=== PATIENT | female | born 1940 | race Asian ===

== ENCOUNTER 2017-02-09 16:08 | Inpatient (IN) | payer OTHER, MEDICARE ==
[~2017-02-09] VITALS: Ht 157.5 cm; Wt 67.1 kg
[2017-02-09] MEDS ORDERED: FAMOTIDINE 20 MG/2 ML IVPush ONE (16:30)
[2017-02-09] MEDS ORDERED: ASPIRIN 81 MG TABLET CHEW PO ONE (16:30)
[2017-02-09] MEDS ORDERED: SODIUM CHLORIDE FLUSH 10ML SYR IVF ONE (16:30)
[2017-02-09] MEDS ORDERED: ONDANSETRON 2MG/ML, 2ML IVPush ONE (16:30)
[2017-02-09] MEDS ORDERED: SODIUM CHLORIDE 0.9% 1,000ML IVBOLUS ONE (16:30)
[2017-02-09] MEDS ORDERED: ASPIRIN 81 MG TABLET CHEW ONE (16:52)
[2017-02-09] MEDS ORDERED: ONDANSETRON 2MG/ML, 2ML ONE (16:52)
[2017-02-09] MEDS ORDERED: FAMOTIDINE 20 MG/2 ML ONE (16:52)
[2017-02-09 17:03] LABS: ASPARTATE AMINO TRANSFERASE 16 U/L (15-37); BLOOD UREA NITROGEN 24 mg/dL (7-18)
[2017-02-09 17:08] LABS: IS PT STATUS REG ER OR PRE ER? YES
[2017-02-09 17:28] LABS: DIFF TOTAL CELLS COUNTED 100 CELL DIFF
[2017-02-09] MEDS ORDERED: ATOR40TA78 PO (17:37)
[2017-02-09] MEDS ORDERED: CARV-39 PO (17:37)
[2017-02-09] MEDS ORDERED: GLUC1TAB21 PO (17:37)
[2017-02-09] MEDS ORDERED: HYDR25TA6 PO (17:37)
[2017-02-09] MEDS ORDERED: ASPI-650 PO (17:37)
[2017-02-09] MEDS ORDERED: VERA100C2 PO (17:37)
[2017-02-09] MEDS ORDERED: IRBE300T16 PO (17:37)
[2017-02-09] MEDS ORDERED: LOSA50TA6 PO (17:37)
[2017-02-09] MEDS ORDERED: MELO-184 PO (17:37)
[2017-02-09] MEDS ORDERED: LINA5TAB PO (17:37)
[2017-02-09 17:53] LABS: ANISOCYTOSIS 1+; POLYCHROMASIA 1+
[2017-02-09 17:54] LABS: HYPOCHROMIA 1+; SPHEROCYTES 1+; TARGET CELLS 1+
[2017-02-09 17:55] LABS: VERIFY COUNTS? YES
[2017-02-09] MEDS ORDERED: PANTOPRAZOLE 80 MG in SODIUM CHLORIDE 0.9% 50 ML IV ONE (18:30)
[2017-02-09] MEDS ORDERED: PANTOPRAZOLE 80 MG in SODIUM CHLORIDE 0.9% 100 ML IV SCH (18:45)
[2017-02-09] MEDS ORDERED: INSULIN ASPART 100 UNITS/ML, PEN SQ-INSULIN SCH (19:00)
[2017-02-09] MEDS ORDERED: MORPHINE SULFATE 4 MG/ML, 1ML IVPush PRN (19:00)
[2017-02-09] MEDS ORDERED: BISACODYL 10 MG SUPP PR PRN (19:00)
[2017-02-09] MEDS ORDERED: ACETAMINOPHEN 325 MG TABLET PO PRN (19:00)
[2017-02-09] MEDS ORDERED: ONDANSETRON 2MG/ML, 2ML IVP PRN (19:00)
[2017-02-09 20:00] VITALS: BP 146/61
[2017-02-09 20:43] VITALS: BP 146/61
[2017-02-09] MEDS ORDERED: ATORVASTATIN 40 MG TABLET PO SCH (21:00)
[2017-02-09] MEDS ORDERED: CARVEDILOL 25 MG TABLET PO SCH (21:00)
[2017-02-09] MEDS ORDERED: VERAPAMIL HCL 100 MG HOMEMEDPO SCH ×2 (21:00→22:04)
[2017-02-09] MEDS: INSULIN ASPART 100 UNITS/ML, PEN SQ-INSULIN SCH (22:00)
[2017-02-09] MEDS: SODIUM CHLORIDE 0.9% 1,000 ML IV SCH (22:34)
[2017-02-09 22:49] VITALS: BP 135/67
[2017-02-09 23:09] VITALS: BP 137/66
[2017-02-09 23:10] VITALS: BP 137/66
[2017-02-09 23:25] VITALS: BP 145/61
[2017-02-10] VITALS (11 sets, daily range): BP systolic 129–167; BP diastolic 60–75
[2017-02-10] MEDS: INSULIN ASPART 100 UNITS/ML, PEN SQ-INSULIN SCH ×4 (04:00→21:02)
[2017-02-10] MEDS: PANTOPRAZOLE 80 MG in SODIUM CHLORIDE 0.9% 100 ML IV SCH ×2 (05:28→12:40)
[2017-02-10 06:39] LABS: ASPARTATE AMINO TRANSFERASE 13 U/L (15-37); BLOOD UREA NITROGEN 16 mg/dL (7-18)
[2017-02-10] MEDS ORDERED: FENTANYL PF 100 MCG/2ML ONE (07:54)
[2017-02-10] MEDS ORDERED: MIDAZOLAM 1 MG/ML, 5ML ONE (07:55)
[2017-02-10] MEDS: HYDROCHLOROTHIAZIDE 25 MG TABLET HOMEMEDPO SCH (09:00)
[2017-02-10] MEDS ORDERED: LOSARTAN 50MG TABLET PO SCH (09:00)
[2017-02-10] MEDS: CARVEDILOL 25 MG TABLET HOMEMEDPO SCH ×2 (09:00→21:03)
[2017-02-10] MEDS: TEMPLATE NON-FORMULARY MED. (Linagliptin** (Tradjenta**) 5 MG) HOMEMEDPO SCH (09:00)
[2017-02-10] MEDS: IRBESARTAN 300 MG TABLET HOMEMEDPO SCH (09:00)
[2017-02-10] MEDS: SODIUM CHLORIDE 0.9% 1,000 ML IV SCH ×2 (09:52→18:31)
[2017-02-10] MEDS ORDERED: ATORVASTATIN 40 MG TABLET HOMEMEDPO SCH (21:00)
[2017-02-11] MEDS: PANTOPRAZOLE 80 MG in SODIUM CHLORIDE 0.9% 100 ML IV SCH ×2 (00:15→12:20)
[2017-02-11 00:19] VITALS: BP 124/64
[2017-02-11] MEDS: SODIUM CHLORIDE 0.9% 1,000 ML IV SCH ×2 (03:53→15:00)
[2017-02-11] MEDS: INSULIN ASPART 100 UNITS/ML, PEN SQ-INSULIN SCH ×3 (03:56→16:00)
[2017-02-11 06:50] VITALS: BP 137/56
[2017-02-11] MEDS: HYDROCHLOROTHIAZIDE 25 MG TABLET HOMEMEDPO SCH (09:00)
[2017-02-11] MEDS ORDERED: OMEPRAZOLE 20 MG CAPSULE.DR PO SCH (09:00)
[2017-02-11] MEDS: IRBESARTAN 300 MG TABLET HOMEMEDPO SCH (09:00)
[2017-02-11] MEDS: CARVEDILOL 25 MG TABLET HOMEMEDPO SCH (09:00)
[2017-02-11] MEDS: TEMPLATE NON-FORMULARY MED. (Linagliptin** (Tradjenta**) 5 MG) HOMEMEDPO SCH (09:00)
[2017-02-11 12:32] VITALS: BP 123/56
[2017-02-11] MEDS ORDERED: OMEP-110 PO (17:24)
== END 2017-02-11 18:58 | disposition home or self-care (01) | DRG 378 ==
LOC: ED 17:49 → EDIP 18:18 → 4EST 20:37
PROVIDERS: ADMIT Internal Medicine; ATTEND Internal Medicine
PROC: 30233N1 Transfusion of Nonautologous Red Blood Cells into Peripheral Vein, Percutaneous Approach (ICD-10-PCS; 2017-02-09)
PROC: 0T9B70Z Drainage of Bladder with Drainage Device, Via Natural or Artificial Opening (ICD-10-PCS; 2017-02-09)
PROC: 0DB68ZX Excision of Stomach, Via Natural or Artificial Opening Endoscopic, Diagnostic (ICD-10-PCS; principal; 2017-02-10)
DX: K26.0 Acute duodenal ulcer with hemorrhage (principal); E44.0 Moderate protein-calorie malnutrition; E87.1 Hypo-osmolality and hyponatremia; D62 Acute posthemorrhagic anemia; K22.10 Ulcer of esophagus without bleeding; I25.10 Atherosclerotic heart disease of native coronary artery without angina pectoris; I10 Essential (primary) hypertension; E78.5 Hyperlipidemia, unspecified; I27.2 Other secondary pulmonary hypertension; M19.90 Unspecified osteoarthritis, unspecified site; E86.1 Hypovolemia; T39.395A Adverse effect of other nonsteroidal anti-inflammatory drugs [NSAID], initial encounter; T39.015A Adverse effect of aspirin, initial encounter; D72.829 Elevated white blood cell count, unspecified; K21.0 Gastro-esophageal reflux disease with esophagitis; E11.65 Type 2 diabetes mellitus with hyperglycemia; Z83.3 Family history of diabetes mellitus; I25.2 Old myocardial infarction; Z98.51 Tubal ligation status; Z80.1 Family history of malignant neoplasm of trachea, bronchus and lung; Z79.82 Long term (current) use of aspirin; Z79.899 Other long term (current) drug therapy; Z79.4 Long term (current) use of insulin; Z87.11 Personal history of peptic ulcer disease; Y92.89 Other specified places as the place of occurrence of the external cause; Z68.27 Body mass index [BMI] 27.0-27.9, adult
CPT/HCPCS: 36415; 71020; 80053; 81003; 82962; 83036; 83690; 84484; 85014; 85018; 85025; 85610; 86677; 86850; 86900; 86923; 88305; 93005; 96365; 96375; 96376; J2250; J2405; J3010; C9113; J7030; P9016; S0028